=== PATIENT | male | born 2000 | race Caucasian/White ===

== ENCOUNTER 2022-02-09 16:41 | Emergency (ER) | payer OTHER ==
[~2022-02-09] VITALS: Ht 185.4 cm; Wt 73.0 kg
[2022-02-09] MEDS ORDERED: DEXAMETHASONE 4MG TABLET PO NR (17:49)
[2022-02-09] MEDS ORDERED: IBUP-2029 MT (17:51)
[2022-02-09] MEDS ORDERED: BACL-141 MT (17:51)
[2022-02-09] MEDS ORDERED: DEXAMETHASONE 0.5MG/5ML ORAL SYR PO ONE (18:00)
[2022-02-09] MEDS ORDERED: IBUPROFEN 600MG TABLET PO ONE (18:00)
[2022-02-09] MEDS ORDERED: BACLOFEN 10MG TABLET PO ONE (18:00)
[2022-02-09 18:31] VITALS: BP 127/84
== END 2022-02-09 18:34 | disposition home or self-care (01) ==
LOC: ER 17:10
DX: M26.601 Right temporomandibular joint disorder, unspecified (principal); I10 Essential (primary) hypertension; R68.84 Jaw pain
CPT/HCPCS: 99284; J8540

== ENCOUNTER 2022-02-10 08:50 | Inpatient (IN) | payer OTHER ==
[~2022-02-10] VITALS: Ht 175.3 cm; Wt 67.6 kg
[2022-02-10] VITALS (14 sets, daily range): BP systolic 101–157; BP diastolic 58–129
[~2022-02-10 08:50] MED LIST: BACL-141 MT; IBUP-2029 MT
[2022-02-10] MEDS ORDERED: SODIUM CHLORIDE 0.9% 1,000 ML IV ONE (09:15)
[2022-02-10 09:36] LABS: BASOPHILS % 0.2 % (0.0-2.0); HEMATOCRIT. 46.8 % (42.0-52.0); HEMOGLOBIN. 15.5 g/dL (14.0-18.0); LYMPHOCYTES % 7.2 % (20.0-50.0); MEAN CORPUSCULAR HEMOGLOBIN 28.9 pg (28.0-32.0); MEAN CORPUSCULAR VOLUME 87.4 fL (80.0-94.0); MEAN PLATELET VOLUME 9.2 fl (7.4-10.4); MONOCYTES % 7.6 % (2.0-8.0); PLATELET 237 x1000/uL (130-400); RED BLOOD CELL COUNT 5.36 mill/uL (4.7-6.1); RED CELL DISTRIBUTION WIDTH 15.8 % (11.6-14.6)
[2022-02-10 09:53] LABS: CHLORIDE 109 mEq/L (98-107)
[2022-02-10] MEDS ORDERED: ATROPINE SULFATE 1MG/10ML SYR ONE (09:58)
[2022-02-10] MEDS ORDERED: SUCCINYLCHOLINE CHLORIDE 200MG/10ML IV ONE (09:58)
[2022-02-10] MEDS ORDERED: ETOMIDATE 2MG/ML 10ML VIAL IV ONE (09:58)
[2022-02-10 10:01] LABS: ETHANOL BLOOD < 10 mg/dL
[2022-02-10] MEDS ORDERED: MIDAZOLAM HCL 2 MG/2 ML VIAL IV ONE ×3 (10:15→15:15)
[2022-02-10] MEDS ORDERED: PIPERACILLIN/TAZ 3.375G PREMIX 50 ML IV NR (10:45)
[2022-02-10] MEDS ORDERED: VANCOMYCIN 1G PREMIX 200 ML IV ONE (10:45)
[2022-02-10] MEDS ORDERED: SODIUM CHLORIDE 0.9% 1000ML BAG (SEPSIS BOLUS) IV ONE (10:45)
[2022-02-10] MEDS ORDERED: SODIUM CHLORIDE 0.9% 2,190 ML IV SCH (11:00)
[2022-02-10] MEDS ORDERED: VANCOMYCIN 1GM PMX (XELLIA) 200 ML IV NR (11:00)
[2022-02-10] MEDS ORDERED: HALOPERIDOL LACTATE 5MG/ML VIAL IM ONE (12:30)
[2022-02-10 12:56] LABS: CLARITY URINE CLEAR (CLEAR); COLOR URINE YELLOW (YELLOW); KETONES URINE TRACE (NEGATIVE); LEUKOCYTE ESTERASE URINE TRACE (NEGATIVE); NITRITE URINE NEGATIVE (NEGATIVE); OCCULT BLOOD URINE NEGATIVE (NEGATIVE); PH URINE 6.5 (4.5-8.0); PROTEIN URINE TRACE (NEGATIVE); SPECIFIC GRAVITY URINE 1.039 (1.005-1.030); UROBILINOGEN URINE 0.2 E.U./dL (0.2-1.0)
[2022-02-10 13:11] LABS: *AMPHETAMINES SCREEN URINE NEGATIVE (NEGATIVE); *BARBITURATES SCREEN URINE NEGATIVE (NEGATIVE); *BENZODIAZEPINES SCREEN URINE PRESUMTIVE POSITIVE (NEGATIVE); *COCAINE SCREEN URINE NEGATIVE (NEGATIVE); CANNABINOID URINE SCREEN PRESUMTIVE POSITIVE (NEGATIVE); METHADONE URINE SCREEN NEGATIVE (NEGATIVE); OPIATES URINE SCREEN NEGATIVE (NEGATIVE); PHENCYCLIDINE URINE SCREEN NEGATIVE (NEGATIVE)
[2022-02-10] MEDS ORDERED: DOCUSATE SODIUM 100MG CAPSULE PO PRN (13:30)
[2022-02-10] MEDS ORDERED: ONDANSETRON HCL 4MG/2ML INJ IV PRN (13:30)
[2022-02-10] MEDS ORDERED: TRAMADOL 50MG TABLET PO PRN (13:30)
[2022-02-10] MEDS ORDERED: HALOPERIDOL LACTATE 5MG/ML VIAL IM PRN (13:30)
[2022-02-10] MEDS ORDERED: MAGNESIUM/ALUMINUM HYDROXIDE/SIMETHICONE 30ML UDC PO PRN (13:30)
[2022-02-10] MEDS: DEXT 5%/0.45% NACL 1000ML 1,000 ML IV SCH ×2 (14:00→22:00)
[2022-02-10] MEDS ORDERED: LACTULOSE 20G/30ML UDC PO ONE (15:30)
[2022-02-10] MEDS ORDERED: MIDAZOLAM HCL 2 MG/2 ML VIAL IV SCH (17:15)
[2022-02-10] MEDS ORDERED: HALOPERIDOL LACTATE 5MG/ML VIAL IM NR (18:59)
[2022-02-10] MEDS ORDERED: MIDAZOLAM HCL 2 MG/2 ML VIAL IM NR (20:00)
[2022-02-10] MEDS ORDERED: NOREPINEPHRINE 8 MG in DEXT 5% WATER 242 ML IV PRN (21:15)
[2022-02-10] MEDS: MIDAZOLAM HCL 100 MG in SODIUM CHLORIDE 0.9% 80 ML IV PRN (21:40)
[2022-02-10] MEDS ORDERED: DOXYCYCLINE 100 MG in DEXT 5% WATER 100 ML IV SCH (23:00)
[2022-02-10 23:07] LABS: CHLORIDE 111 mEq/L (98-107)
[2022-02-10 23:28] LABS: CREATINE KINASE 1035 IU/L (39-308)
[2022-02-10 23:31] LABS: BG BASE EXCESS -2.7 mmol/L (-2.0-2.0); BG CARBOXYHEMOGLOBIN 0.3 % (0.5-1.5); BG DEOXYHEMOGLOBIN 0.5 % (0.0-5.0); BG FRACTION INSPIRED OXYGEN 100; BG HCO3 ACT 20.4 mmol/L (22.0-26.0); BG METHEMOGLOBIN 0.5 % (0.0-1.5); BG OXYGEN SATURATION 99.5 % (92.0-98.5); BG OXYHEMOGLOBIN 98.7 % (94.0-97.0); BG PCO2 31.3 mmHg (35.0-45.0); BG PH 7.433 (7.350-7.450); BG PO2 529.6 mmHg (75.0-100.0); BG SAMPLE SITE RIGHT RADIAL; BG TOTAL HEMOGLOBIN 14.5 g/dL (12.0-18.0); BG TOTAL RESPIRATORY RATE 25 b/min; BG VENT MODE VENT - AC
[2022-02-11] VITALS (96 sets, daily range): BP systolic 135–253; BP diastolic 49–102
[2022-02-11] MEDS: AMPICILLIN SOD/SULBACTAM NA 3 G in SODIUM CHLORIDE 0.9% 100 ML IV SCH ×2 (00:10→06:24)
[2022-02-11] MEDS: PROPOFOL 10MG/ML 100ML 100 ML IV PRN ×5 (00:35→23:33)
[2022-02-11] MEDS: MIDAZOLAM HCL 100 MG in SODIUM CHLORIDE 0.9% 80 ML IV PRN ×4 (02:30→23:28)
[2022-02-11] MEDS: ACYCLOVIR INJ 750 MG in DEXT 5% WATER 100 ML IV SCH ×3 (05:24→21:13)
[2022-02-11 06:17] LABS: BASOPHILS % 0.2 % (0.0-2.0); HEMATOCRIT. 40.3 % (42.0-52.0); HEMOGLOBIN. 13.4 g/dL (14.0-18.0); LYMPHOCYTES % 13.6 % (20.0-50.0); MEAN CORPUSCULAR HEMOGLOBIN 29.1 pg (28.0-32.0); MEAN CORPUSCULAR VOLUME 87.4 fL (80.0-94.0); MEAN PLATELET VOLUME 9.7 fl (7.4-10.4); MONOCYTES % 13.3 % (2.0-8.0); NEUTROPHILS % 72.9 % (40.0-76.0); PLATELET 185 x1000/uL (130-400); RED BLOOD CELL COUNT 4.61 mill/uL (4.7-6.1); RED CELL DISTRIBUTION WIDTH 16.2 % (11.6-14.6)
[2022-02-11 06:27] LABS: CHLORIDE 111 mEq/L (98-107)
[2022-02-11] MEDS ORDERED: NALOXONE HCL 0.4MG/ML VIAL IV PRN (08:15)
[2022-02-11 08:36] LABS: INR 1.1; PROTHROMBIN TIME 11.9 sec (9.6-11.0)
[2022-02-11 10:22] LABS: CREATINE KINASE 1049 IU/L (39-308)
[2022-02-11] MEDS: CEFTRIAXONE 2 G in DEXTROSE 5% WATER 50 ML IV SCH ×2 (11:50→21:28)
[2022-02-11] MEDS: METRONIDAZOLE 500 MG PREMIX 100 ML IV SCH ×2 (12:34→20:23)
[2022-02-11] MEDS: DEXT 5%/0.45% NACL 1000ML 1,000 ML IV SCH (13:22)
[2022-02-11] MEDS: VANCOMYCIN 1250MG in DEXTROSE 5% WATER 250ML IV SCH ×2 (15:10→22:57)
[2022-02-11 18:01] LABS: HEPATITIS B SURFACE ANTIGEN NEGATIVE
[2022-02-11] MEDS ORDERED: CEFTRIAXONE 2 G PREMIX 50 ML IV SCH (21:00)
[2022-02-12] VITALS (96 sets, daily range): BP systolic 98–180; BP diastolic 45–117
[2022-02-12] MEDS: DEXT 5%/0.45% NACL 1000ML 1,000 ML IV SCH ×2 (03:59→19:56)
[2022-02-12] MEDS: METRONIDAZOLE 500 MG PREMIX 100 ML IV SCH ×3 (04:00→21:46)
[2022-02-12] MEDS: PROPOFOL 10MG/ML 100ML 100 ML IV PRN ×5 (04:55→22:34)
[2022-02-12] MEDS: VANCOMYCIN 1250MG in DEXTROSE 5% WATER 250ML IV SCH (05:21)
[2022-02-12] MEDS: ACYCLOVIR INJ 750 MG in DEXT 5% WATER 100 ML IV SCH ×3 (05:35→21:46)
[2022-02-12 05:44] LABS: BASOPHILS % 0.2 % (0.0-2.0); HEMATOCRIT. 34.4 % (42.0-52.0); HEMOGLOBIN. 11.4 g/dL (14.0-18.0); LYMPHOCYTES % 9.9 % (20.0-50.0); MEAN CORPUSCULAR HEMOGLOBIN 29.4 pg (28.0-32.0); MEAN CORPUSCULAR VOLUME 88.6 fL (80.0-94.0); MONOCYTES % 14.2 % (2.0-8.0); NEUTROPHILS % 75.7 % (40.0-76.0); PLATELET 156 x1000/uL (130-400); RED BLOOD CELL COUNT 3.88 mill/uL (4.7-6.1); RED CELL DISTRIBUTION WIDTH 15.9 % (11.6-14.6)
[2022-02-12 05:54] LABS: CHLORIDE 111 mEq/L (98-107)
[2022-02-12] MEDS: MIDAZOLAM HCL 100 MG in SODIUM CHLORIDE 0.9% 80 ML IV PRN ×3 (07:03→18:04)
[2022-02-12 07:11] LABS: HIV SCREEN 4G Non Reactive (Non Reactive)
[2022-02-12] MEDS ORDERED: FENTANYL CITRATE/PF 2,500 MCG in SODIUM CHLORIDE 0.9% 200 ML IV PRN (08:00)
[2022-02-12] MEDS ORDERED: FENTANYL 2500MCG/250ML PMX 250 ML IV PRN (08:00)
[2022-02-12] MEDS: HYDRALAZINE 20MG/ML VIAL IV PRN (08:11)
[2022-02-12] MEDS: CEFTRIAXONE 2 G in DEXTROSE 5% WATER 50 ML IV SCH ×2 (08:12→21:58)
[2022-02-12] MEDS: ACETAMINOPHEN 325MG TABLET PO PRN (08:13)
[2022-02-12 09:14] LABS: BG BASE EXCESS -2.5 mmol/L (-2.0-2.0); BG CARBOXYHEMOGLOBIN 0.3 % (0.5-1.5); BG DEOXYHEMOGLOBIN 1.1 % (0.0-5.0); BG FRACTION INSPIRED OXYGEN 30; BG HCO3 ACT 20.1 mmol/L (22.0-26.0); BG METHEMOGLOBIN 0.1 % (0.0-1.5); BG OXYGEN SATURATION 98.9 % (92.0-98.5); BG OXYHEMOGLOBIN 98.5 % (94.0-97.0); BG PCO2 28.2 mmHg (35.0-45.0); BG PO2 158.1 mmHg (75.0-100.0); BG SAMPLE SITE RIGHT RADIAL; BG TOTAL HEMOGLOBIN 11.9 g/dL (12.0-18.0); BG VENT MODE VENT - AC
[2022-02-12] MEDS: NICARDIPINE 100 MG in SODIUM CHLORIDE 0.9% 60 ML IV PRN ×2 (11:46→18:01)
[2022-02-12] MEDS: FLUOXETINE HCL 10 MG CAPSULE PO SCH (12:00)
[2022-02-12] MEDS ORDERED: PROPOFOL 10MG/ML 100ML 100 ML IV PRN (13:45)
[2022-02-12 13:58] LABS: GLUCOSE CSF 78 mg/dL (41-75)
[2022-02-12] MEDS ORDERED: PHENOBARBITAL SODIUM 65MG/ML 1ML IV NR ×2 (20:45→23:15)
[2022-02-12] MEDS ORDERED: LEVETIRACETAM 1,000 MG in SODIUM CHLORIDE 0.9% 100 ML IV SCH (21:00)
[2022-02-12] MEDS: AMLODIPINE 5MG TABLET PO SCH (21:55)
[2022-02-12] MEDS ORDERED: PHENYTOIN SODIUM 500 MG in SODIUM CHLORIDE 0.9% 50 ML IV NR (22:00)
[2022-02-12] MEDS: PHENYTOIN SODIUM 100MG/2ML VIAL IV SCH (22:51)
[2022-02-12] MEDS: VANCOMYCIN 750MG PREMIX 150 ML IV SCH (23:00)
[2022-02-12] MEDS: LEVETIRACETAM 500MG/5ML CUP PO SCH (23:00)
[2022-02-12] MEDS ORDERED: LEVETIRACETAM 1000MG PREMIX 100 ML IV SCH (23:00)
[2022-02-12] MEDS ORDERED: LEVETIRACETAM 500MG PREMIX 100 ML IV SCH (23:00)
[2022-02-12] MEDS ORDERED: PHENYTOIN SODIUM 1,000 MG in SODIUM CHLORIDE 0.9% 100 ML IV NR (23:15)
[2022-02-13] VITALS (93 sets, daily range): BP systolic 96–138; BP diastolic 40–78
[2022-02-13] MEDS: MIDAZOLAM HCL 100 MG in SODIUM CHLORIDE 0.9% 80 ML IV PRN ×4 (04:09→22:13)
[2022-02-13] MEDS: PROPOFOL 10MG/ML 100ML 100 ML IV PRN ×5 (04:10→20:25)
[2022-02-13] MEDS: METRONIDAZOLE 500 MG PREMIX 100 ML IV SCH ×3 (04:11→20:24)
[2022-02-13] MEDS: ACYCLOVIR INJ 750 MG in DEXT 5% WATER 100 ML IV SCH ×3 (05:12→20:24)
[2022-02-13] MEDS: PHENYTOIN SODIUM 100MG/2ML VIAL IV SCH ×3 (05:13→21:06)
[2022-02-13] MEDS: VANCOMYCIN 750MG PREMIX 150 ML IV SCH ×2 (05:13→21:06)
[2022-02-13 06:10] LABS: BASOPHILS % 0.4 % (0.0-2.0); EOSINOPHILS % 2.6 % (0.0-5.0); HEMATOCRIT. 31.5 % (42.0-52.0); HEMOGLOBIN. 10.5 g/dL (14.0-18.0); LYMPHOCYTES % 27.9 % (20.0-50.0); MEAN CORPUSCULAR HEMOGLOBIN 29.9 pg (28.0-32.0); MEAN CORPUSCULAR VOLUME 89.6 fL (80.0-94.0); MEAN PLATELET VOLUME 9.4 fl (7.4-10.4); MONOCYTES % 14.3 % (2.0-8.0); NEUTROPHILS % 54.8 % (40.0-76.0); PLATELET 131 x1000/uL (130-400); RED BLOOD CELL COUNT 3.51 mill/uL (4.7-6.1); RED CELL DISTRIBUTION WIDTH 15.9 % (11.6-14.6)
[2022-02-13 06:12] LABS: CHLORIDE 111 mEq/L (98-107)
[2022-02-13 08:06] LABS: BG BASE EXCESS -2.9 mmol/L (-2.0-2.0); BG CARBOXYHEMOGLOBIN 0.2 % (0.5-1.5); BG HCO3 ACT 21.7 mmol/L (22.0-26.0); BG METHEMOGLOBIN 0.1 % (0.0-1.5); BG OXYHEMOGLOBIN 96.7 % (94.0-97.0); BG PCO2 37.1 mmHg (35.0-45.0); BG PH 7.385 (7.350-7.450); BG PO2 95.9 mmHg (75.0-100.0); BG SAMPLE SITE RIGHT RADIAL; BG TOTAL HEMOGLOBIN 10.5 g/dL (12.0-18.0); BG VENT MODE VENT - AC
[2022-02-13] MEDS ORDERED: LIDOCAINE HCL 1% 10 MG/ML 10ML VIAL ONE (08:23)
[2022-02-13] MEDS: DEXT 5%/0.45% NACL 1000ML 1,000 ML IV SCH ×2 (09:04→20:24)
[2022-02-13] MEDS: AMLODIPINE 5MG TABLET PO SCH ×2 (09:04→20:23)
[2022-02-13] MEDS: CEFTRIAXONE 2 G in DEXTROSE 5% WATER 50 ML IV SCH ×2 (09:04→20:24)
[2022-02-13] MEDS: FLUOXETINE HCL 10 MG CAPSULE PO SCH (09:04)
[2022-02-13] MEDS: LEVETIRACETAM 500MG/5ML CUP PO SCH ×2 (09:05→20:23)
[2022-02-13] MEDS ORDERED: POTASSIUM CHLORIDE INJ 40 MEQ in DEXT 5% WATER 250 ML IV ONE (10:00)
[2022-02-13] MEDS ORDERED: GADOTERATE MEGLUMINE 5 MMOL/10 ML VIAL IV ONE (10:42)
[2022-02-13] MEDS: KCL 20MEQ/100ML X 2 FOR TOTAL KCL 40MEQ/200ML IV SCH ×2 (12:03→14:38)
[2022-02-13 13:46] LABS: CREATINE KINASE 453 IU/L (39-308)
[2022-02-13] MEDS: PHENOBARBITAL SODIUM 65MG/ML 1ML IV SCH ×2 (14:38→22:13)
[2022-02-14] VITALS (96 sets, daily range): BP systolic 106–146; BP diastolic 44–75
[2022-02-14] MEDS: PROPOFOL 10MG/ML 100ML 100 ML IV PRN ×6 (01:02→23:32)
[2022-02-14] MEDS: METRONIDAZOLE 500 MG PREMIX 100 ML IV SCH ×3 (03:44→19:58)
[2022-02-14] MEDS: ACYCLOVIR INJ 750 MG in DEXT 5% WATER 100 ML IV SCH ×3 (03:44→20:07)
[2022-02-14 04:55] LABS: BASOPHILS % 0.7 % (0.0-2.0); HEMATOCRIT. 27.1 % (42.0-52.0); LYMPHOCYTES % 20.5 % (20.0-50.0); MEAN CORPUSCULAR HEMOGLOBIN 29.1 pg (28.0-32.0); MEAN PLATELET VOLUME 9.5 fl (7.4-10.4); MONOCYTES % 12.7 % (2.0-8.0); NEUTROPHILS % 63.1 % (40.0-76.0); PLATELET 130 x1000/uL (130-400); RED BLOOD CELL COUNT 3.08 mill/uL (4.7-6.1); RED CELL DISTRIBUTION WIDTH 16.2 % (11.6-14.6)
[2022-02-14] MEDS: PHENYTOIN SODIUM 100MG/2ML VIAL IV SCH ×3 (05:01→21:07)
[2022-02-14] MEDS: MIDAZOLAM HCL 100 MG in SODIUM CHLORIDE 0.9% 80 ML IV PRN (05:02)
[2022-02-14 05:07] LABS: CHLORIDE 109 mEq/L (98-107)
[2022-02-14 05:20] LABS: PHENOBARBITAL 4.9 ug/mL (15.0-40.0)
[2022-02-14 08:43] LABS: BG BASE EXCESS 0.7 mmol/L (-2.0-2.0); BG CARBOXYHEMOGLOBIN 0.2 % (0.5-1.5); BG DEOXYHEMOGLOBIN 1.4 % (0.0-5.0); BG FRACTION INSPIRED OXYGEN 30; BG METHEMOGLOBIN 0.6 % (0.0-1.5); BG OXYGEN SATURATION 98.6 % (92.0-98.5); BG OXYHEMOGLOBIN 97.8 % (94.0-97.0); BG PCO2 38.2 mmHg (35.0-45.0); BG PH 7.433 (7.350-7.450); BG PO2 166.8 mmHg (75.0-100.0); BG SAMPLE SITE RIGHT RADIAL; BG TOTAL HEMOGLOBIN 9.6 g/dL (12.0-18.0); BG VENT MODE VENT - AC
[2022-02-14] MEDS: LEVETIRACETAM 500MG/5ML CUP PO SCH ×2 (08:43→20:45)
[2022-02-14] MEDS: PHENOBARBITAL SODIUM 65MG/ML 1ML IV SCH ×2 (08:43→20:46)
[2022-02-14] MEDS: CEFTRIAXONE 2 G in DEXTROSE 5% WATER 50 ML IV SCH ×2 (08:44→20:45)
[2022-02-14] MEDS: AMLODIPINE 5MG TABLET PO SCH ×2 (08:44→21:06)
[2022-02-14] MEDS: FLUOXETINE HCL 10 MG CAPSULE PO SCH (08:44)
[2022-02-14] MEDS: VANCOMYCIN 750MG PREMIX 150 ML IV SCH ×2 (08:44→21:38)
[2022-02-14] MEDS ORDERED: PHENOBARBITAL SODIUM 65MG/ML 1ML IV SCH (10:30)
[2022-02-14] MEDS: DEXT 5%/0.45% NACL 1000ML 1,000 ML IV SCH (11:40)
[2022-02-14] MEDS: MIDAZOLAM 100MG/100ML PMX 100 ML IV PRN ×3 (11:43→20:41)
[2022-02-14] MEDS ORDERED: PHENYTOIN SODIUM 500 MG in SODIUM CHLORIDE 0.9% 50 ML IV SCH (12:00)
[2022-02-15] VITALS (86 sets, daily range): BP systolic 115–160; BP diastolic 51–86
[2022-02-15] MEDS: DEXT 5%/0.45% NACL 1000ML 1,000 ML IV SCH ×2 (00:40→13:06)
[2022-02-15] MEDS: MIDAZOLAM 100MG/100ML PMX 100 ML IV PRN ×3 (01:40→17:08)
[2022-02-15] MEDS: METRONIDAZOLE 500 MG PREMIX 100 ML IV SCH ×3 (03:03→20:29)
[2022-02-15] MEDS: PROPOFOL 10MG/ML 100ML 100 ML IV PRN ×5 (03:19→21:00)
[2022-02-15] MEDS: ACYCLOVIR INJ 750 MG in DEXT 5% WATER 100 ML IV SCH ×3 (03:40→22:03)
[2022-02-15] MEDS: DOXYCYCLINE 100MG in DEXTROSE 5% WATER 100ML IV SCH ×2 (05:02→17:22)
[2022-02-15] MEDS: PHENYTOIN SODIUM 100MG/2ML VIAL IV SCH ×3 (05:02→22:08)
[2022-02-15] MEDS ORDERED: DOXYCYCLINE HYCLATE 100 MG/VIAL IV SCH (06:00)
[2022-02-15 08:06] LABS: BG BASE EXCESS 0.6 mmol/L (-2.0-2.0); BG CARBOXYHEMOGLOBIN 0.2 % (0.5-1.5); BG DEOXYHEMOGLOBIN 1.5 % (0.0-5.0); BG HCO3 ACT 25.3 mmol/L (22.0-26.0); BG METHEMOGLOBIN 0.4 % (0.0-1.5); BG OXYGEN SATURATION 98.5 % (92.0-98.5); BG OXYHEMOGLOBIN 97.9 % (94.0-97.0); BG PCO2 41.1 mmHg (35.0-45.0); BG PH 7.407 (7.350-7.450); BG PO2 150.8 mmHg (75.0-100.0); BG SAMPLE SITE RIGHT RADIAL; BG TOTAL HEMOGLOBIN 9.2 g/dL (12.0-18.0); BG VENT MODE VENT - AC
[2022-02-15] MEDS: CEFTRIAXONE 2 G in DEXTROSE 5% WATER 50 ML IV SCH ×2 (08:16→22:04)
[2022-02-15] MEDS: AMLODIPINE 5MG TABLET PO SCH ×2 (08:16→21:00)
[2022-02-15] MEDS: LEVETIRACETAM 500MG/5ML CUP PO SCH ×2 (08:16→22:08)
[2022-02-15] MEDS: FLUOXETINE HCL 10 MG CAPSULE PO SCH (08:16)
[2022-02-15] MEDS: PHENOBARBITAL SODIUM 65MG/ML 1ML IV SCH ×2 (08:16→22:04)
[2022-02-15] MEDS: VANCOMYCIN 750MG PREMIX 150 ML IV SCH ×2 (09:42→22:09)
[2022-02-15] MEDS: ENOXAPARIN 80MG/0.8ML SYR SUBCUT SCH ×2 (13:06→23:58)
[2022-02-15] MEDS: HYDRALAZINE 20MG/ML VIAL IV PRN (15:57)
[2022-02-16] VITALS (83 sets, daily range): BP systolic 135–167; BP diastolic 53–101
[2022-02-16] MEDS ORDERED: MIDAZOLAM HCL 100 MG in SODIUM CHLORIDE 0.9% 80 ML IV PRN (01:00)
[2022-02-16] MEDS: PROPOFOL 10MG/ML 100ML 100 ML IV PRN ×5 (01:15→18:29)
[2022-02-16] MEDS ORDERED: MIDAZOLAM 100MG/100ML PREMIX IV PRN (01:15)
[2022-02-16] MEDS: DEXT 5%/0.45% NACL 1000ML 1,000 ML IV SCH ×2 (03:18→16:34)
[2022-02-16] MEDS: HYDRALAZINE 20MG/ML VIAL IV PRN ×2 (03:18→16:34)
[2022-02-16] MEDS: METRONIDAZOLE 500 MG PREMIX 100 ML IV SCH ×3 (04:28→21:06)
[2022-02-16] MEDS: ACETAMINOPHEN 325MG TABLET PO PRN ×2 (04:34→12:20)
[2022-02-16] MEDS: ACYCLOVIR INJ 750 MG in DEXT 5% WATER 100 ML IV SCH ×3 (05:10→21:16)
[2022-02-16 06:12] LABS: PHENOBARBITAL 10.7 ug/mL (15.0-40.0)
[2022-02-16] MEDS: DOXYCYCLINE 100MG in DEXTROSE 5% WATER 100ML IV SCH ×2 (06:30→17:49)
[2022-02-16] MEDS: PHENYTOIN SODIUM 100MG/2ML VIAL IV SCH ×3 (06:30→21:29)
[2022-02-16 08:10] LABS: BG BASE EXCESS 1.9 mmol/L (-2.0-2.0); BG CARBOXYHEMOGLOBIN 0.2 % (0.5-1.5); BG DEOXYHEMOGLOBIN 1.3 % (0.0-5.0); BG HCO3 ACT 25.5 mmol/L (22.0-26.0); BG METHEMOGLOBIN 0.3 % (0.0-1.5); BG OXYGEN SATURATION 98.7 % (92.0-98.5); BG OXYHEMOGLOBIN 98.2 % (94.0-97.0); BG PCO2 35.8 mmHg (35.0-45.0); BG PO2 139.9 mmHg (75.0-100.0); BG SAMPLE SITE LEFT RADIAL; BG TOTAL HEMOGLOBIN 10.9 g/dL (12.0-18.0); BG VENT MODE VENT - AC
[2022-02-16] MEDS: CEFTRIAXONE 2 G in DEXTROSE 5% WATER 50 ML IV SCH ×2 (08:24→21:17)
[2022-02-16] MEDS: LEVETIRACETAM 500MG/5ML CUP PO SCH ×2 (08:24→21:29)
[2022-02-16] MEDS: PHENOBARBITAL SODIUM 65MG/ML 1ML IV SCH ×2 (08:26→21:28)
[2022-02-16] MEDS: ENOXAPARIN 80MG/0.8ML SYR SUBCUT SCH ×2 (08:27→22:12)
[2022-02-16] MEDS: FLUOXETINE HCL 10 MG CAPSULE PO SCH (08:27)
[2022-02-16] MEDS: AMLODIPINE 5MG TABLET PO SCH ×2 (08:27→21:29)
[2022-02-16] MEDS: VANCOMYCIN 750MG PREMIX 150 ML IV SCH ×2 (11:23→21:28)
[2022-02-16 15:32] LABS: BASOPHILS % 0.3 % (0.0-2.0); EOSINOPHILS % 0.4 % (0.0-5.0); HEMATOCRIT. 28.4 % (42.0-52.0); HEMOGLOBIN. 9.5 g/dL (14.0-18.0); LYMPHOCYTES % 13.9 % (20.0-50.0); MEAN CORPUSCULAR HEMOGLOBIN 29.8 pg (28.0-32.0); MEAN CORPUSCULAR VOLUME 88.9 fL (80.0-94.0); MEAN PLATELET VOLUME 8.4 fl (7.4-10.4); MONOCYTES % 10.7 % (2.0-8.0); NEUTROPHILS % 74.7 % (40.0-76.0); PLATELET 220 x1000/uL (130-400); RED BLOOD CELL COUNT 3.19 mill/uL (4.7-6.1); RED CELL DISTRIBUTION WIDTH 15.8 % (11.6-14.6)
[2022-02-16 15:46] LABS: CHLORIDE 110 mEq/L (98-107)
[2022-02-16] MEDS: IPRATROPIUM/ALBUTEROL 0.5-3(2.5)MG/3ML NEB HHN PRN (16:08)
[2022-02-16] MEDS: ACETYLCYSTEINE 100MG/ML 10% VIAL 4ML INH SCH (16:09)
[2022-02-16 16:12] LABS: HEPATITIS B SURFACE ANTIGEN NEGATIVE
[2022-02-17] VITALS (91 sets, daily range): BP systolic 129–191; BP diastolic 67–108
[2022-02-17 05:12] LABS: CHLORIDE 107 mEq/L (98-107)
[2022-02-17] MEDS: METRONIDAZOLE 500 MG PREMIX 100 ML IV SCH ×3 (06:24→20:04)
[2022-02-17] MEDS: ACYCLOVIR INJ 750 MG in DEXT 5% WATER 100 ML IV SCH ×3 (06:24→20:04)
[2022-02-17] MEDS: DOXYCYCLINE 100MG in DEXTROSE 5% WATER 100ML IV SCH ×2 (06:25→17:30)
[2022-02-17] MEDS: PHENYTOIN SODIUM 100MG/2ML VIAL IV SCH ×3 (06:35→21:26)
[2022-02-17] MEDS: DEXT 5%/0.45% NACL 1000ML 1,000 ML IV SCH ×2 (06:36→19:58)
[2022-02-17] MEDS: PROPOFOL 10MG/ML 100ML 100 ML IV PRN ×5 (07:50→23:25)
[2022-02-17] MEDS: FLUOXETINE HCL 10 MG CAPSULE PO SCH (08:03)
[2022-02-17] MEDS: LEVETIRACETAM 500MG/5ML CUP PO SCH ×2 (08:04→20:22)
[2022-02-17] MEDS: AMLODIPINE 5MG TABLET PO SCH ×2 (08:04→20:23)
[2022-02-17] MEDS: ACETAMINOPHEN 325MG TABLET PO PRN ×2 (08:04→16:10)
[2022-02-17] MEDS: PANTOPRAZOLE SODIUM 40 MG/VIAL IV SCH (08:04)
[2022-02-17] MEDS: ENOXAPARIN 80MG/0.8ML SYR SUBCUT SCH ×2 (08:05→20:22)
[2022-02-17] MEDS: PHENOBARBITAL SODIUM 65MG/ML 1ML IV SCH ×2 (08:05→20:22)
[2022-02-17] MEDS: IPRATROPIUM/ALBUTEROL 0.5-3(2.5)MG/3ML NEB HHN PRN ×2 (08:06→16:07)
[2022-02-17] MEDS: ACETYLCYSTEINE 100MG/ML 10% VIAL 4ML INH SCH ×2 (08:06→16:07)
[2022-02-17] MEDS: CEFTRIAXONE 2 G in DEXTROSE 5% WATER 50 ML IV SCH ×2 (08:06→20:23)
[2022-02-17] MEDS ORDERED: PANTOPRAZOLE SODIUM 40 MG/VIAL IV SCH (09:00)
[2022-02-17 09:20] LABS: BG BASE EXCESS 0.5 mmol/L (-2.0-2.0); BG CARBOXYHEMOGLOBIN 0.3 % (0.5-1.5); BG DEOXYHEMOGLOBIN 1.3 % (0.0-5.0); BG FRACTION INSPIRED OXYGEN 30; BG HCO3 ACT 24.4 mmol/L (22.0-26.0); BG OXYGEN SATURATION 98.7 % (92.0-98.5); BG OXYHEMOGLOBIN 98.4 % (94.0-97.0); BG PCO2 36.2 mmHg (35.0-45.0); BG PH 7.446 (7.350-7.450); BG PO2 145.5 mmHg (75.0-100.0); BG SAMPLE SITE RIGHT RADIAL; BG TOTAL HEMOGLOBIN 10.7 g/dL (12.0-18.0); BG VENT MODE VENT - AC
[2022-02-17] MEDS: VANCOMYCIN 750MG PREMIX 150 ML IV SCH ×2 (10:12→21:25)
[2022-02-17 13:10] LABS: WEST NILE VIRUS CSF IGG Negative (Negative); WEST NILE VIRUS CSF IGM Negative (Negative)
[2022-02-17] MEDS: HYDRALAZINE 20MG/ML VIAL IV PRN ×2 (13:23→19:53)
[2022-02-17] MEDS: MORPHINE SULFATE 2 MG/ML CPJ (NOT FOR IM USE) IV PRN (15:20)
[2022-02-18] VITALS (70 sets, daily range): BP systolic 120–177; BP diastolic 65–162
[2022-02-18] MEDS: ACETYLCYSTEINE 100MG/ML 10% VIAL 4ML INH SCH ×3 (00:23→16:27)
[2022-02-18] MEDS: IPRATROPIUM/ALBUTEROL 0.5-3(2.5)MG/3ML NEB HHN PRN ×3 (00:23→16:27)
[2022-02-18] MEDS: PROPOFOL 10MG/ML 100ML 100 ML IV PRN ×2 (03:36→07:42)
[2022-02-18] MEDS: ACYCLOVIR INJ 750 MG in DEXT 5% WATER 100 ML IV SCH ×3 (03:38→20:10)
[2022-02-18] MEDS: PHENYTOIN SODIUM 100MG/2ML VIAL IV SCH ×3 (05:40→21:13)
[2022-02-18] MEDS: DOXYCYCLINE 100MG in DEXTROSE 5% WATER 100ML IV SCH ×2 (05:41→18:51)
[2022-02-18 05:48] LABS: BASOPHILS % 0.8 % (0.0-2.0); EOSINOPHILS % 1.2 % (0.0-5.0); HEMATOCRIT. 30.4 % (42.0-52.0); HEMOGLOBIN. 10.4 g/dL (14.0-18.0); LYMPHOCYTES % 16.1 % (20.0-50.0); MEAN CORPUSCULAR HEMOGLOBIN 30.2 pg (28.0-32.0); MEAN CORPUSCULAR VOLUME 88.6 fL (80.0-94.0); MEAN PLATELET VOLUME 8.1 fl (7.4-10.4); MONOCYTES % 12.9 % (2.0-8.0); PLATELET 296 x1000/uL (130-400); RED BLOOD CELL COUNT 3.44 mill/uL (4.7-6.1); RED CELL DISTRIBUTION WIDTH 15.9 % (11.6-14.6)
[2022-02-18 06:13] LABS: CHLORIDE 109 mEq/L (98-107)
[2022-02-18] MEDS: HYDRALAZINE 20MG/ML VIAL IV PRN (06:35)
[2022-02-18 06:52] LABS: PHENOBARBITAL 16.4 ug/mL (15.0-40.0)
[2022-02-18] MEDS: DEXT 5%/0.45% NACL 1000ML 1,000 ML IV SCH ×2 (07:41→21:13)
[2022-02-18] MEDS: LEVETIRACETAM 500MG/5ML CUP PO SCH ×2 (08:14→20:29)
[2022-02-18] MEDS: PHENOBARBITAL SODIUM 65MG/ML 1ML IV SCH ×2 (08:15→20:10)
[2022-02-18] MEDS: MORPHINE SULFATE 2 MG/ML CPJ (NOT FOR IM USE) IV PRN ×2 (08:16→13:45)
[2022-02-18] MEDS: ENOXAPARIN 80MG/0.8ML SYR SUBCUT SCH ×2 (08:17→20:11)
[2022-02-18] MEDS: ACETAMINOPHEN 325MG TABLET PO PRN (08:18)
[2022-02-18] MEDS: FLUOXETINE HCL 10 MG CAPSULE PO SCH (08:18)
[2022-02-18] MEDS: PANTOPRAZOLE SODIUM 40 MG/VIAL IV SCH (08:18)
[2022-02-18] MEDS: AMLODIPINE 5MG TABLET PO SCH ×2 (08:19→20:11)
[2022-02-18] MEDS ORDERED: POTASSIUM CHLORIDE 20MEQ TABLET SR PO NR (09:30)
[2022-02-18 10:02] LABS: BG BASE EXCESS 2.1 mmol/L (-2.0-2.0); BG CARBOXYHEMOGLOBIN 0.2 % (0.5-1.5); BG DEOXYHEMOGLOBIN 1.3 % (0.0-5.0); BG FRACTION INSPIRED OXYGEN 30; BG HCO3 ACT 26.3 mmol/L (22.0-26.0); BG METHEMOGLOBIN 0.5 % (0.0-1.5); BG OXYGEN SATURATION 98.7 % (92.0-98.5); BG PCO2 39.2 mmHg (35.0-45.0); BG PH 7.444 (7.350-7.450); BG PO2 144.4 mmHg (75.0-100.0); BG SAMPLE SITE RIGHT RADIAL; BG TOTAL HEMOGLOBIN 11.2 g/dL (12.0-18.0); BG VENT MODE VENT - CPAP
[2022-02-19] VITALS (42 sets, daily range): BP systolic 124–177; BP diastolic 51–118
[2022-02-19] MEDS: IPRATROPIUM/ALBUTEROL 0.5-3(2.5)MG/3ML NEB HHN PRN ×3 (01:34→16:48)
[2022-02-19] MEDS: ACYCLOVIR INJ 750 MG in DEXT 5% WATER 100 ML IV SCH ×3 (04:05→20:47)
[2022-02-19] MEDS: DOXYCYCLINE 100MG in DEXTROSE 5% WATER 100ML IV SCH ×2 (05:08→17:01)
[2022-02-19] MEDS: PHENYTOIN SODIUM 100MG/2ML VIAL IV SCH ×3 (05:08→22:45)
[2022-02-19] MEDS: PHENOBARBITAL SODIUM 65MG/ML 1ML IV SCH ×2 (08:00→20:47)
[2022-02-19] MEDS: AMLODIPINE 5MG TABLET PO SCH ×2 (08:00→20:47)
[2022-02-19] MEDS: PANTOPRAZOLE SODIUM 40 MG/VIAL IV SCH (08:00)
[2022-02-19] MEDS: LEVETIRACETAM 500MG/5ML CUP PO SCH ×2 (08:00→20:47)
[2022-02-19] MEDS: FLUOXETINE HCL 10 MG CAPSULE PO SCH (08:00)
[2022-02-19] MEDS: ENOXAPARIN 80MG/0.8ML SYR SUBCUT SCH ×2 (08:01→20:47)
[2022-02-19] MEDS: ACETYLCYSTEINE 100MG/ML 10% VIAL 4ML INH SCH ×2 (09:16→16:48)
[2022-02-19] MEDS: DEXT 5%/0.45% NACL 1000ML 1,000 ML IV SCH (11:40)
[2022-02-19 12:20] LABS: CHLORIDE 105 mEq/L (98-107)
[2022-02-19] MEDS ORDERED: POTASSIUM CHLORIDE 20MEQ/PACKET PO NR (18:00)
[2022-02-20] VITALS (20 sets, daily range): BP systolic 90–156; BP diastolic 55–95
[2022-02-20] MEDS: DEXT 5%/0.45% NACL 1000ML 1,000 ML IV SCH ×2 (00:34→13:30)
[2022-02-20] MEDS: ACYCLOVIR INJ 750 MG in DEXT 5% WATER 100 ML IV SCH ×3 (05:52→20:30)
[2022-02-20] MEDS: DOXYCYCLINE 100MG in DEXTROSE 5% WATER 100ML IV SCH (05:53)
[2022-02-20] MEDS: PHENYTOIN SODIUM 100MG/2ML VIAL IV SCH ×2 (06:03→13:30)
[2022-02-20] MEDS: MORPHINE SULFATE 2 MG/ML CPJ (NOT FOR IM USE) IV PRN (07:53)
[2022-02-20] MEDS: LEVETIRACETAM 500MG/5ML CUP PO SCH (09:16)
[2022-02-20] MEDS: AMLODIPINE 5MG TABLET PO SCH ×2 (09:16→22:13)
[2022-02-20] MEDS: FLUOXETINE HCL 10 MG CAPSULE PO SCH (09:16)
[2022-02-20] MEDS: PANTOPRAZOLE SODIUM 40 MG/VIAL IV SCH (09:17)
[2022-02-20] MEDS: ENOXAPARIN 80MG/0.8ML SYR SUBCUT SCH ×2 (09:17→22:13)
[2022-02-20] MEDS: ACETYLCYSTEINE 100MG/ML 10% VIAL 4ML INH SCH ×2 (09:52→16:06)
[2022-02-20] MEDS: IPRATROPIUM/ALBUTEROL 0.5-3(2.5)MG/3ML NEB HHN PRN ×2 (09:52→16:06)
[2022-02-21] VITALS (13 sets, daily range): BP systolic 88–151; BP diastolic 51–86
[2022-02-21] MEDS: IPRATROPIUM/ALBUTEROL 0.5-3(2.5)MG/3ML NEB HHN PRN ×2 (00:38→08:20)
[2022-02-21] MEDS: ACETYLCYSTEINE 100MG/ML 10% VIAL 4ML INH SCH ×2 (00:38→08:20)
[2022-02-21] MEDS: DEXT 5%/0.45% NACL 1000ML 1,000 ML IV SCH (02:53)
[2022-02-21] MEDS: ACYCLOVIR INJ 750 MG in DEXT 5% WATER 100 ML IV SCH (04:30)
[2022-02-21] MEDS: AMLODIPINE 5MG TABLET PO SCH (08:46)
[2022-02-21] MEDS: FLUOXETINE HCL 10 MG CAPSULE PO SCH (08:46)
[2022-02-21] MEDS: PANTOPRAZOLE SODIUM 40 MG/VIAL IV SCH (08:46)
[2022-02-21] MEDS: ENOXAPARIN 80MG/0.8ML SYR SUBCUT SCH (09:00)
== END 2022-02-21 10:14 | disposition home or self-care (01) | DRG 870 ==
LOC: ER 08:50 → EDBEDREQTM 10:44 → EDBEDREQSVC 10:44 → MICUNO 12:23 → EDBEDREQSVC 12:29 → EDBEDREQTM 12:29 → EDBEDREQ 12:29 → ENRESERV 17:39 → 5EST 02-20 00:30
PROVIDERS: ADMIT Hospitalist; ATTEND Hospitalist
PROC: 5A1955Z Respiratory Ventilation, Greater than 96 Consecutive Hours (ICD-10-PCS; principal; 2022-02-10)
PROC: 0BH17EZ Insertion of Endotracheal Airway into Trachea, Via Natural or Artificial Opening (ICD-10-PCS; 2022-02-10)
PROC: 009U3ZZ Drainage of Spinal Canal, Percutaneous Approach (ICD-10-PCS; 2022-02-12)
PROC: B01BZZZ Fluoroscopy of Spinal Cord (ICD-10-PCS; 2022-02-12)
PROC: 02HV33Z Insertion of Infusion Device into Superior Vena Cava, Percutaneous Approach (ICD-10-PCS; 2022-02-13)
PROC: B548ZZA Ultrasonography of Superior Vena Cava, Guidance (ICD-10-PCS; 2022-02-13)
PROC: 4A10X4Z Monitoring of Central Nervous Electrical Activity, External Approach (ICD-10-PCS; 2022-02-14)
PROC: 4A10X4Z Monitoring of Central Nervous Electrical Activity, External Approach (ICD-10-PCS; 2022-02-17)
PROC: 4A10X4Z Monitoring of Central Nervous Electrical Activity, External Approach (ICD-10-PCS; 2022-02-18)
DX: A41.9 Sepsis, unspecified organism (principal); J96.00 Acute respiratory failure, unspecified whether with hypoxia or hypercapnia; G92.8 Other toxic encephalopathy; E72.20 Disorder of urea cycle metabolism, unspecified; A86 Unspecified viral encephalitis; M62.82 Rhabdomyolysis; R65.20 Severe sepsis without septic shock; I51.7 Cardiomegaly; R31.0 Gross hematuria; R74.8 Abnormal levels of other serum enzymes; R33.9 Retention of urine, unspecified; G40.901 Epilepsy, unspecified, not intractable, with status epilepticus; D64.9 Anemia, unspecified; D69.6 Thrombocytopenia, unspecified; Z20.822 Contact with and (suspected) exposure to COVID-19; X58.XXXA Exposure to other specified factors, initial encounter; F19.90 Other psychoactive substance use, unspecified, uncomplicated; F32.A Depression, unspecified; S61.431A Puncture wound without foreign body of right hand, initial encounter; Z79.899 Other long term (current) drug therapy; Z79.1 Long term (current) use of non-steroidal anti-inflammatories (NSAID); Z82.49 Family history of ischemic heart disease and other diseases of the circulatory system; Z91.52 Personal history of nonsuicidal self-harm; Y93.89 Activity, other specified; Y92.89 Other specified places as the place of occurrence of the external cause; Y99.8 Other external cause status
CPT/HCPCS: 31500; 36415; 36573; 36600; 62328; 70486; 70553; 71045; 76870; 80048; 80053; 80184; 80185; 80202; 80305; 80307; 80320; 80329; 81003; 82140; 82375; 82550; 82805; 82945; 83605; 84145; 84157; 84478; 84484; 85025; 86788; 86789; 87070; 87116; 87389; 87426; 87529; 92610; 93005; 93971; 93976; 94002; 94003; 94640; 95822; 97162; 97167; 97530; 99291; A9577; C1725; C9113; J0133; J0295; J0330; J0360; J0461; J0696; J1165; J1630; J1650; J1953; J2250; J2270; J2405; J2543; J2560; J2704; J3010; J3370; J3480; J3490; J7030; J7050; J7060; J7608; A4315; G0480